=== PATIENT | male | born 1995 | race Caucasian/White ===

== ENCOUNTER 2018-01-31 17:13 | Emergency (ER) | payer BC ==
[~2018-01-31] VITALS: Ht 177.8 cm; Wt 65.2 kg
[2018-01-31 17:24] VITALS: BP 126/83
[2018-01-31] MEDS ORDERED: HYDROcodone/APAP 5/325 TABLET PO STA (18:23)
[2018-01-31] MEDS ORDERED: HYDROcodone/APAP 5/325 TABLET ONE (18:32)
== END 2018-01-31 18:59 | disposition home or self-care (01) ==
LOC: ED 18:42
DX: S93.492A Sprain of other ligament of left ankle, initial encounter (principal); X50.1XXA Overexertion from prolonged static or awkward postures, initial encounter; Y93.21 Activity, ice skating; Y92.488 Other paved roadways as the place of occurrence of the external cause; Y99.8 Other external cause status
CPT/HCPCS: 99284

== ENCOUNTER 2018-04-30 08:47 | Emergency (ER) | payer BC ==
[~2018-04-30] VITALS: Ht 180.3 cm; Wt 64.2 kg
[2018-04-30] MEDS ORDERED: DEXAMETHASONE 4 MG/ML, 1ML PO ONE (09:30)
[2018-04-30] MEDS ORDERED: DEXAMETHASONE 4 MG/ML, 1ML ONE (09:36)
[2018-04-30 09:45] VITALS: BP 118/78
== END 2018-04-30 10:37 | disposition home or self-care (01) ==
LOC: ED 10:31
DX: B34.9 Viral infection, unspecified (principal)
CPT/HCPCS: 73030; 99284; J1100